=== PATIENT | male | born 1945 | race Caucasian/White ===

== ENCOUNTER 2021-11-11 09:00 | Outpatient (CLI) | payer OTHER | END 2021-11-11 09:15 | disposition home or self-care (01) | LOC: PPH VACUNA 09:00 | PROVIDERS: ATTEND Emergency Medicine Pediatric Emergency Medicine | DX: Z23 Encounter for immunization (principal) ==

== ENCOUNTER 2022-11-20 07:42 | Outpatient (CLI) | payer OTHER | END 2022-11-20 07:54 | disposition home or self-care (01) | LOC: TOM 07:42 | PROVIDERS: ATTEND General Practice | DX: S09.93XA Unspecified injury of face, initial encounter (principal) ==